=== PATIENT | female | born 1950 | race African-American/Black ===

== ENCOUNTER → 2016-08-17 | Outpatient (CLI) | payer MEDICARE, MEDICAID ==
[~2016-08-17] MED LIST: ALLO100T PO; AMLO10TA80 PO; ASPI-1159 PO; BENA40TA3 PO; CARV12.545 PO; DOXA4TAB3 PO; HYDR-4134 PO; HYDR-4135 PO; PRAV20TA57 PO; PROT40 PO; RANI150T7 PO; SENN-76 PO; [UNRECOGNIZED DRUG - CODE] PO
== END | disposition home or self-care (01) ==
LOC: MRI 13:34
PROVIDERS: ATTEND Internal Medicine Nephrology
DX: M48.06 Spinal stenosis, lumbar region (principal); M47.896 Other spondylosis, lumbar region; M12.88 Other specific arthropathies, not elsewhere classified, other specified site
CPT/HCPCS: 72148

== ENCOUNTER 2016-11-03 05:27 | Inpatient (IN) | payer MEDICARE, MEDICAID ==
[~2016-11-03] VITALS: Ht 162.6 cm; Wt 110.2 kg
[~2016-11-03 05:27] MED LIST changes: +LORA1TAB PO
[2016-11-03] MEDS ORDERED: LACTATED RINGERS 1,000 ML IV SCH ×2 (06:15→16:00)
[2016-11-03] MEDS ORDERED: BUPIVACAINE HCL 0.5% (5MG/ML) 50ML ONE (07:12)
[2016-11-03] MEDS ORDERED: VASOPRESSIN 20 UNIT/ML 1ML ONE (07:12)
[2016-11-03] MEDS ORDERED: CITRIC ACID/SODIUM CITRATE SOLN 30ML UDC PO NR (07:45)
[2016-11-03] MEDS ORDERED: ONDA4SOL PO (07:57)
[2016-11-03] MEDS ORDERED: METHYLENE BLUE 50 MG/10 ML AMP IV ONE (08:05)
[2016-11-03] MEDS ORDERED: METRONIDAZOLE 0.75% VAG GEL 70GM VG ONE (08:07)
[2016-11-03] MEDS ORDERED: BACITRACIN ZINC 15GM TUBE TOP ONE (10:41)
[2016-11-03] MEDS ORDERED: LABETALOL HCL 20MG/4ML CARPUJECT IV PRN (10:45)
[2016-11-03] MEDS ORDERED: MEPERIDINE HCL/PF 25MG/ML CPJ IV PRN (10:45)
[2016-11-03] MEDS ORDERED: ONDANSETRON HCL 4MG/2ML VIAL IV PRN (10:45)
[2016-11-03] MEDS ORDERED: IBUPROFEN 600MG TABLET PO PRN (11:45)
[2016-11-03] MEDS ORDERED: SIMETHICONE 80MG TABLET CHEW PO PRN (11:45)
[2016-11-03] MEDS: HYDROMORPHONE HCL/PF 2MG/ML CPJ IV PRN ×6 (12:04→13:01)
[2016-11-03] MEDS ORDERED: HYDROMORPHONE PCA 10MG/50ML IV PRN (12:30)
[2016-11-03] MEDS ORDERED: LORAZEPAM 1MG TABLET PO PRN (13:00)
[2016-11-03 15:30] VITALS: BP 135/81
[2016-11-03] MEDS ORDERED: KETOROLAC 30MG/ML VIAL IV NR (15:45)
[2016-11-03] MEDS ORDERED: ONDANSETRON HCL 4MG TABLET PO PRN (15:45)
[2016-11-03 20:00] VITALS: BP 130/71
[2016-11-03 20:44] VITALS: BP 135/81
[2016-11-03] MEDS ORDERED: DEXTROSE 50% WATER 50ML SYRINGE IV PRN (20:45)
[2016-11-03] MEDS: BLOOD SUGAR DIAGNOSTIC STRIP TEST SCH (21:00)
[2016-11-03] MEDS: INSULIN LISPRO 100 UNITS/ML SUBCUT SCH (21:00)
[2016-11-03] MEDS ORDERED: HYDRALAZINE HCL 50MG TABLET PO SCH (21:00)
[2016-11-03] MEDS: ALLOPURINOL 100 MG TABLET PO SCH (22:27)
[2016-11-03] MEDS: CARVEDILOL 25MG TABLET PO SCH (22:28)
[2016-11-03] MEDS: DOXAZOSIN MESYLATE 4MG TABLET PO SCH (22:28)
[2016-11-03] MEDS: HYDROCODONE/ACETAMINOPHEN 5/325MG TABLET PO PRN (22:36)
[2016-11-04] VITALS (7 sets, daily range): BP systolic 105–133; BP diastolic 55–64
[2016-11-04 06:20] LABS: CARBON DIOXIDE 29 mEq/L (21-32); CHLORIDE 105 mEq/L (98-107)
[2016-11-04] MEDS: INSULIN LISPRO 100 UNITS/ML SUBCUT SCH ×4 (06:30→21:00)
[2016-11-04] MEDS: BLOOD SUGAR DIAGNOSTIC STRIP TEST SCH ×4 (06:30→21:38)
[2016-11-04 06:56] LABS: BASOPHILS % 0.4 % (0.0-2.0); EOSINOPHILS % 0.5 % (0.0-5.0); LYMPHOCYTES % 11.4 % (20.0-50.0); MEAN CORPUSCULAR HEMOGLOBIN 27.1 pg (28.0-32.0); MEAN CORPUSCULAR VOLUME 80.8 fL (81.0-99.0); MEAN PLATELET VOLUME 8.5 fl (7.4-10.4); MONOCYTES % 8.4 % (2.0-8.0); NEUTROPHILS % 79.3 % (40.0-76.0); PLATELET 211 x1000/uL (130-400); RED BLOOD CELL COUNT 3.71 mill/uL (4.2-5.4); RED CELL DISTRIBUTION WIDTH 13.6 % (11.6-14.6)
[2016-11-04] MEDS: PANTOPRAZOLE 40MG DR TABLET PO SCH (08:54)
[2016-11-04] MEDS: SENNOSIDES/DOCUSATE SOD 8.6/50MG TABLET PO SCH (08:54)
[2016-11-04] MEDS: HYDROCODONE/ACETAMINOPHEN 5/325MG TABLET PO PRN ×2 (08:54→21:33)
[2016-11-04] MEDS: CARVEDILOL 25MG TABLET PO SCH ×2 (08:55→21:36)
[2016-11-04] MEDS: ASPIRIN 81MG EC TABLET PO SCH (08:55)
[2016-11-04] MEDS ORDERED: HYDRALAZINE HCL 25MG TABLET PO SCH (09:00)
[2016-11-04] MEDS: AMLODIPINE 10MG TABLET PO SCH (09:06)
[2016-11-04] MEDS: BENAZEPRIL 20MG TABLET PO SCH (09:07)
[2016-11-04] MEDS: HYDRALAZINE HCL 50MG TABLET PO SCH ×3 (09:08→18:12)
[2016-11-04] MEDS ORDERED: LIDOCAINE HCL/PF 1% 2ML VIAL ONE (12:44)
[2016-11-04 15:49] LABS: BG BASE EXCESS 4.4 mmol/L (-2.0-2.0); BG CARBOXYHEMOGLOBIN 0.6 % (0.5-1.5); BG DEOXYHEMOGLOBIN 12.8 % (0.0-5.0); BG HCO3 ACT 29.3 mmol/L (22.0-26.0); BG METHEMOGLOBIN 0.6 % (0.0-1.5); BG PH 7.431 (7.350-7.450); BG PO2 53.8 mmHg (75.0-100.0); BG SAMPLE SITE RIGHT RADIAL; BG TOTAL HEMOGLOBIN 11.2 g/dL (12.0-18.0); BG VENT MODE ROOM AIR
[2016-11-04] MEDS ORDERED: POTASSIUM CHLORIDE 20MEQ TABLET SR PO NR (17:30)
[2016-11-04 18:33] LABS: BG BASE EXCESS 0.6 mmol/L (-2.0-2.0); BG CARBOXYHEMOGLOBIN 0.7 % (0.5-1.5); BG DEOXYHEMOGLOBIN 8.8 % (0.0-5.0); BG HCO3 ACT 24.9 mmol/L (22.0-26.0); BG METHEMOGLOBIN 0.3 % (0.0-1.5); BG OXYGEN SATURATION 91.1 % (92.0-98.5); BG OXYHEMOGLOBIN 90.2 % (94.0-97.0); BG PCO2 38.7 mmHg (35.0-45.0); BG PH 7.426 (7.350-7.450); BG PO2 60.8 mmHg (75.0-100.0); BG SAMPLE SITE RIGHT RADIAL; BG TOTAL HEMOGLOBIN 10.9 g/dL (12.0-18.0); BG VENT MODE NASAL CANNULA
[2016-11-04] MEDS: ALLOPURINOL 100 MG TABLET PO SCH (21:37)
[2016-11-04] MEDS: DOXAZOSIN MESYLATE 4MG TABLET PO SCH (21:37)
[2016-11-05] VITALS: BP 118/62
[2016-11-05 04:00] VITALS: BP 123/65
[2016-11-05] MEDS: BLOOD SUGAR DIAGNOSTIC STRIP TEST SCH ×4 (06:03→21:00)
[2016-11-05] MEDS: INSULIN LISPRO 100 UNITS/ML SUBCUT SCH ×4 (06:03→22:44)
[2016-11-05 07:07] LABS: BASOPHILS % 0.4 % (0.0-2.0); EOSINOPHILS % 1.2 % (0.0-5.0); HEMOGLOBIN. 9.5 g/dL (12.0-16.0); LYMPHOCYTES % 15.6 % (20.0-50.0); MEAN CORPUSCULAR HEMOGLOBIN 27.3 pg (28.0-32.0); MEAN CORPUSCULAR VOLUME 80.8 fL (81.0-99.0); MEAN PLATELET VOLUME 8.1 fl (7.4-10.4); MONOCYTES % 8.6 % (2.0-8.0); NEUTROPHILS % 74.2 % (40.0-76.0); PLATELET 196 x1000/uL (130-400); RED BLOOD CELL COUNT 3.46 mill/uL (4.2-5.4); RED CELL DISTRIBUTION WIDTH 13.7 % (11.6-14.6)
[2016-11-05 08:00] VITALS: BP 124/64
[2016-11-05 08:25] LABS: CARBON DIOXIDE 28 mEq/L (21-32); CHLORIDE 106 mEq/L (98-107)
[2016-11-05] MEDS: SENNOSIDES/DOCUSATE SOD 8.6/50MG TABLET PO SCH (08:30)
[2016-11-05] MEDS: CARVEDILOL 25MG TABLET PO SCH ×2 (08:31→20:18)
[2016-11-05] MEDS: AMLODIPINE 10MG TABLET PO SCH (08:31)
[2016-11-05] MEDS: BENAZEPRIL 20MG TABLET PO SCH (08:31)
[2016-11-05] MEDS: ASPIRIN 81MG EC TABLET PO SCH (08:32)
[2016-11-05] MEDS: PANTOPRAZOLE 40MG DR TABLET PO SCH (08:32)
[2016-11-05] MEDS: HYDRALAZINE HCL 50MG TABLET PO SCH ×3 (08:32→16:33)
[2016-11-05] MEDS: HYDROCODONE/ACETAMINOPHEN 5/325MG TABLET PO PRN ×2 (10:00→20:18)
[2016-11-05 10:58] LABS: BG BASE EXCESS 4.8 mmol/L (-2.0-2.0); BG CARBOXYHEMOGLOBIN 0.5 % (0.5-1.5); BG DEOXYHEMOGLOBIN 10.5 % (0.0-5.0); BG FRACTION INSPIRED OXYGEN 21; BG HCO3 ACT 29.7 mmol/L (22.0-26.0); BG OXYGEN SATURATION 89.4 % (92.0-98.5); BG PCO2 45.4 mmHg (35.0-45.0); BG PH 7.433 (7.350-7.450); BG PO2 58.2 mmHg (75.0-100.0); BG SAMPLE SITE RIGHT RADIAL; BG TOTAL HEMOGLOBIN 10.4 g/dL (12.0-18.0); BG VENT MODE ROOM AIR
[2016-11-05 12:00] VITALS: BP 108/61
[2016-11-05] MEDS ORDERED: LIDOCAINE HCL/PF 1% 2ML VIAL ONE (14:43)
[2016-11-05 16:00] VITALS: BP 117/62
[2016-11-05] MEDS ORDERED: POTASSIUM CHLORIDE 20MEQ TABLET SR PO NR (16:00)
[2016-11-05 20:00] VITALS: BP 125/67
[2016-11-05] MEDS: DOXAZOSIN MESYLATE 4MG TABLET PO SCH (20:17)
[2016-11-05] MEDS: ALLOPURINOL 100 MG TABLET PO SCH (20:18)
[2016-11-05] MEDS ORDERED: ATORVASTATIN CALCIUM 20MG TABLET PO SCH (21:00)
[2016-11-06] VITALS: BP 122/72
[2016-11-06 04:00] VITALS: BP 116/68
[2016-11-06] MEDS: BLOOD SUGAR DIAGNOSTIC STRIP TEST SCH ×2 (06:00→12:28)
[2016-11-06] MEDS: HYDROCODONE/ACETAMINOPHEN 5/325MG TABLET PO PRN (06:02)
[2016-11-06] MEDS: INSULIN LISPRO 100 UNITS/ML SUBCUT SCH ×2 (06:51→12:15)
[2016-11-06 07:46] VITALS: BP 120/61
[2016-11-06] MEDS: HYDRALAZINE HCL 50MG TABLET PO SCH ×2 (08:04→13:00)
[2016-11-06] MEDS: SENNOSIDES/DOCUSATE SOD 8.6/50MG TABLET PO SCH (08:04)
[2016-11-06] MEDS: ASPIRIN 81MG EC TABLET PO SCH (08:07)
[2016-11-06] MEDS: PANTOPRAZOLE 40MG DR TABLET PO SCH (08:08)
[2016-11-06] MEDS: CARVEDILOL 25MG TABLET PO SCH (08:08)
[2016-11-06 08:48] LABS: CLARITY URINE CLEAR (CLEAR); COLOR URINE YELLOW (YELLOW); GLUCOSE URINE NEGATIVE (NEGATIVE); KETONES URINE NEGATIVE (NEGATIVE); LEUKOCYTE ESTERASE URINE TRACE (NEGATIVE); NITRITE URINE NEGATIVE (NEGATIVE); OCCULT BLOOD URINE NEGATIVE (NEGATIVE); PH URINE 5.5 (4.5-8.0); PROTEIN URINE NEGATIVE (NEGATIVE); SPECIFIC GRAVITY URINE 1.014 (1.005-1.030)
[2016-11-06] MEDS ORDERED: POTASSIUM CHLORIDE 20MEQ TABLET SR PO SCH (09:00)
[2016-11-06] MEDS: AMLODIPINE 10MG TABLET PO SCH (09:52)
[2016-11-06] MEDS: BENAZEPRIL 20MG TABLET PO SCH (09:53)
[2016-11-06 12:00] VITALS: BP 104/53
[2016-11-06 15:41] VITALS: BP_SYST 104; BP_SYST 117; BP_DIAS 53; BP_DIAS 59
[2016-11-06 16:00] VITALS: BP 117/59
[2016-11-07] MEDS ORDERED: FAMOTIDINE 20MG TABLET PO SCH (09:00)
== END 2016-11-06 16:21 | disposition home or self-care (01) | DRG 742 ==
LOC: OR 05:27 → 6EST 05:28 → 5WST 22:52
PROVIDERS: ADMIT Obstetrics & Gynecology Obstetrics; ATTEND Obstetrics & Gynecology Obstetrics
PROC: 0UT10ZZ Resection of Left Ovary, Open Approach (ICD-10-PCS; 2016-11-03)
PROC: 0UT70ZZ Resection of Bilateral Fallopian Tubes, Open Approach (ICD-10-PCS; 2016-11-03)
PROC: 0JQC0ZZ Repair Pelvic Region Subcutaneous Tissue and Fascia, Open Approach (ICD-10-PCS; 2016-11-03)
PROC: 0JQC0ZZ Repair Pelvic Region Subcutaneous Tissue and Fascia, Open Approach (ICD-10-PCS; 2016-11-03)
PROC: 0TSC0ZZ Reposition Bladder Neck, Open Approach (ICD-10-PCS; 2016-11-03)
PROC: 0UT90ZZ Resection of Uterus, Open Approach (ICD-10-PCS; principal; 2016-11-03 07:30)
DX: N81.4 Uterovaginal prolapse, unspecified (principal); Z68.41 Body mass index [BMI] 40.0-44.9, adult; I10 Essential (primary) hypertension; J98.11 Atelectasis; E11.9 Type 2 diabetes mellitus without complications; D64.9 Anemia, unspecified; E66.01 Morbid (severe) obesity due to excess calories; R09.02 Hypoxemia; Z79.84 Long term (current) use of oral hypoglycemic drugs; M48.00 Spinal stenosis, site unspecified; E87.6 Hypokalemia; F41.1 Generalized anxiety disorder; Z88.5 Allergy status to narcotic agent; G89.29 Other chronic pain; M54.9 Dorsalgia, unspecified; N39.3 Stress incontinence (female) (male); M19.90 Unspecified osteoarthritis, unspecified site; Z79.899 Other long term (current) drug therapy; Z82.49 Family history of ischemic heart disease and other diseases of the circulatory system; Z83.3 Family history of diabetes mellitus; Z90.49 Acquired absence of other specified parts of digestive tract; Z88.8 Allergy status to other drugs, medicaments and biological substances; Z80.9 Family history of malignant neoplasm, unspecified; Z98.891 History of uterine scar from previous surgery
CPT/HCPCS: 36415; 36600; 71010; 78582; 80048; 81001; 82375; 82805; 82962; 83735; 84132; 85025; 86850; 86900; 86920; 87086; 88302; 88304; 88305; 93970; 97162; A9558; J0330; J1170; J1580; J1815; J1885; J2250; J2405; J2704; J3010; J3490; J7120; Q9968

== ENCOUNTER → 2017-07-04 | Outpatient (CLI) | payer MEDICARE, MEDICAID ==
[~2017-07-04] MED LIST changes: +ONDA4SOL PO
== END | disposition home or self-care (01) ==
LOC: MAMMO 10:32
PROVIDERS: ATTEND Obstetrics & Gynecology Obstetrics
DX: Z12.31 Encounter for screening mammogram for malignant neoplasm of breast (principal)
CPT/HCPCS: 77067

== ENCOUNTER → 2018-09-18 | Outpatient (CLI) | payer MEDICARE, MEDICAID ==
[~2018-09-18] MED LIST changes: -ASPI-1159 PO; +ASPI-1393 PO; -BENA40TA3 PO; +BENA40TA9 PO; -SENN-76 PO; +[UNRECOGNIZED DRUG - CODE] PO
== END | disposition home or self-care (01) ==
LOC: MAMMO 11:20
PROVIDERS: ATTEND Obstetrics & Gynecology Obstetrics
DX: Z12.31 Encounter for screening mammogram for malignant neoplasm of breast (principal); R92.1 Mammographic calcification found on diagnostic imaging of breast
CPT/HCPCS: 77067